=== PATIENT | female | born 1975 | race African-American/Black ===

== ENCOUNTER 2017-03-04 02:26 | Emergency (ER) | payer OTHER ==
[2017-03-04 02:43] VITALS: BMI 25.7
[2017-03-04] MEDS ORDERED: METOCLOPRAMIDE HCL INJECTION 10 MG/2 ML VIAL IVPUSH ONE (02:44)
[2017-03-04] MEDS ORDERED: SODIUM CHLORIDE 1,000 ML IV STA ×2 (02:44→04:50)
[2017-03-04] MEDS ORDERED: FAMOTIDINE 20 MG/50 ML IVPB 50 ML IVPB ONE ×2 (02:49→03:32)
[2017-03-04] MEDS ORDERED: PANTOPRAZOLE SODIUM 40 MG in SODIUM CHLORIDE 100 ML IVPB ONE (02:49)
--- NOTE | 2017-03-04 02:50 | PDOC ---
History of Present Illness - General Chief Complaint: Nausea/Vomiting Stated Complaint: FLU LIKE SYPTOMS/NAUSEA Time Seen by Provider: 03/04/17 02:30 History Source: Patient, Family (SON) Exam Limitations: No Limitations - History of Present Illness Travel History: No Initial Comments: 03/04/17 02:45 41yo Female patient presents to ED c/o subjective fever, nausea, and vomiting. Patient states she was seen at [facility], [place] March 01, 2017. She was diagnosed with Viral Gastroenteritis and prescribed Zofran, Imodium. Patient states she was unable to corn picker Zofran because it cost 68 dollars. Patient states she has tried to eat chicken broth, drank cheryl cong, water and gatorade. She denies any other complaints at this time. Timing/Duration: reports: constant Quality: reports: moderate Abdominal Pain Onset Location: denies: RUQ, LUQ, RLQ, LLQ, epigastric, periumbilical, suprapubic, generalized abdomen, flank, unknown, other Pain Radiation: denies: no radiation, RUQ, LUQ, RLQ, LLQ, epigastric, periumbilical, flank, groin, scapula, shoulder, chest, back, other Activities at Onset: denies: none, exertion, emotional upset, rest, sleep, no specific activity, eating, working, sexual intercourse, other Treatment Prior to Arrive: worse with: analgesics, antacids, cold pack, heat, laxative, enema, other Alleviating Factors: worse with: None, Belching, Shallow Breathing, Defecation, Eating, Holding Breath, Passing Gas, Change in Position, Rest, Voiding, Vomiting Past History - Travel Traveled outside of the country in the last 30 days: No Close contact w/someone who was outside of country & ill: No - Past Medical History Allergies/Adverse Reactions: Allergies Allergy/AdvReac Type Severity Reaction Status Date / Time aspirin Allergy Verified 03/04/17 03:18 Home Medications: Ambulatory Orders NK [No Known Home Medication] 11/26/15 Diabetes: Yes - Psycho/Social/Smoking Cessation Hx Suicidal Ideation: No Smoking History: Never smoked Have you smoked in the past 12 months: No Number of Cigarettes Smoked Daily: 1 Information on smoking cessation initiated: No Hx Alcohol Use: No Drug/Substance Use Hx: No Abd/GI Specific PMHX - Complaint Specific PMHX Colitis: No Diverticulitis: No Gall Bladder Disease: No GERD: No Hepatitis: No Irritable Bowel Synd (IBS): No Pancreatitis: No GI Ulcer Disease: No Review of Systems - Review of Systems Able to Perform ROS?: Yes Is the patient limited Ivorian proficient: No Constitutional: Yes: Fever (subjective). No: Chills Respiratory: Yes: Cough. No: Shortness of Breath, Stridor, Wheezing, Productive cough Cardiac (ROS): No: Chest Pain, Edema, Lightheadedness, Palpitations, Syncope, Chest Tightness ABD/GI: Yes: Diarrhea, Nausea, Poor Appetite, Vomiting. No: Constipated, Difficulty Swallowing, Poor Fluid Intake, Rectal Bleeding : No: Burning, Dysuria, Discharge, Flank Pain, Hematuria, Incontinence, Pain, Urgency Musculoskeletal: No: Back Pain Integumentary: No: Bruising, Erythema, Rash Neurological: No: Headache, Numbness, Paresthesia, Seizure, Tremors, Weakness All Other Systems: Reviewed and Negative *Physical Exam - Vital Signs Last Vital Signs Temp Pulse Resp BP Pulse Ox 97.5 F L 75 20 118/65 3 L 03/04/17 02:42 03/04/17 02:42 03/04/17 02:42 03/04/17 02:42 03/04/17 02:42 - Physical Exam General Appearance: Yes: Nourished, Appropriately Dressed, Mild Distress. No: Apparent Distress, Moderate Distress, Severe Distress HEENT: positive: EOMI, ASHOK, Normal ENT Inspection, Normal Voice, Symmetrical, TMs Normal, Pharynx Normal. negative: Nasal Congestion, Rhinorrhea, TM Bulging , TM Dull, TM Erythema Neck: positive: Trachea midline, Normal Thyroid, Supple. negative: Lymphadenopathy (R), Lymphadenopathy (L), Tender lateral, Tender midline Respiratory/Chest: positive: Lungs Clear, Normal Breath Sounds. negative: Chest Tender, Respiratory Distress, Accessory Muscle Use, Labored Respiration, Rapid RR, Stridor, Wheezing Cardiovascular: positive: Regular Rhythm, Regular Rate. negative: Edema, JVD, Murmur Gastrointestinal/Abdominal: positive: Flat, Soft, Increased Bowel Sounds. negative: Distended, Guarding, Rebound, Tenderness Musculoskeletal: positive: Normal Inspection. negative: CVA Tenderness Extremity: positive: Normal Capillary Refill, Normal Inspection, Normal Range of Motion Integumentary: positive: Normal Color, Dry, Warm Neurologic: positive: hammer driver II-XII NML intact, Fully Oriented, Alert, Normal Mood/ Affect, Normal Response, Motor Strength 04/02 ED Treatment Course - LABORATORY CBC & Chemistry Diagram: 03/04/17 03:08 03/04/17 03:08 *DC/Admit/Observation/Transfer Diagnosis at time of Disposition: Dehydration Nausea and vomiting Qualifiers: Vomiting type: cyclical vomiting Vomiting Intractability: non-intractable Qualified Code(s): G43.A0 - Cyclical vomiting, not intractable - Discharge Dispostion Disposition: HOME Condition at time of disposition: Improved Admit: No - Patient Instructions Printed Discharge Instructions: DI for Vomiting -- Adult Additional Instructions: FOLLOW UP WITH YOUR PRIMARY CARE PROVIDER. TAKE YOUR MEDICATIONS PRESCRIBED. DRINK PLENTY WATER, GATORADE. ALSO, EAT BANANA, RICE, APPLESAUCE AND TOAST. THEN ADVANCE DIET TOLERATED. Print Language: ESTONIAN
[2017-03-04] MEDS ORDERED: PANTOPRAZOLE SODIUM 100 ML IVPB ONE (03:11)
[2017-03-04 03:25] LABS: MCH 26.8 pg (25.7-33.7); MCHC 34.7 g/dl (32.0-36.0); MEAN CELL VOLUME 77.2 fl (80-96); MEAN PLT VOLUME 8.4 fl (7.5-11.1); PLATELET COUNT 266 K/MM3 (134-434); RDW 12.8 % (11.6-15.6); WHITE BLOOD COUNT 13.3 K/mm3 (4.0-10.0)
[2017-03-04 03:30] LABS: URINE APPEARANCE CLEAR; URINE BILIRUBIN NEGATIVE (NEGATIVE); URINE COLOR DKYELLOW; URINE GLUCOSE (UA) NEGATIVE (NEGATIVE); URINE KETONE 2+ (NEGATIVE); URINE NITRITE NEGATIVE (NEGATIVE); URINE UROBILINOGEN 4.0 E.U/dl E.U./dl (0.2-1.0)
[2017-03-04] MEDS ORDERED: PANTOPRAZOLE SODIUM 40 MG/100 ML PRE-DOCKED IVPB ONE (03:30)
[2017-03-04 03:47] LABS: ALBUMIN 2.9 g/dl (3.4-5.0); ALK PHOS 77 U/L (45-117); ANION GAP 17 (8-16); BILIRUBIN,TOTAL 1.4 mg/dL (0.2-1.0); CALCIUM 8.1 mg/dL (8.5-10.1); CO2 21 mmol/L (21-32); CREATININE 0.7 mg/dL (0.55-1.02); GLUCOSE,RANDOM 86 mg/dL (74-106); SGPT/ALT 19 U/L (12-78); TOT PROT 7.7 g/dl (6.4-8.2)
[2017-03-04 03:51] LABS: URINE BLOOD 1+ (NEGATIVE); URINE LEUK ESTERASE 2+ (NEGATIVE); URINE PROTEIN 2+ (NEGATIVE)
[2017-03-04 03:52] LABS: SGOT/AST 23 U/L (15-37)
[2017-03-04 03:59] LABS: URINE MUCUS RARE; URINE RBC 14 /hpf (0-3); URINE WBC 35 /hpf (3-5)
[2017-03-04 04:38] LABS: PLATELET ESTIMATE ADEQUATE (NORMAL)
[2017-03-04] MEDS ORDERED: POTASSIUM CHLORIDE TABS 20 MEQ TABLET.ER (FP) PO ONE ×2 (04:42→04:46)
[2017-03-04] MEDS ORDERED: PROMETHAZINE HCL 25 MG/1 ML VIAL IVPUSH ONE (04:50)
--- NOTE | 2017-03-04 04:56 | PDOC ---
[id number] 3 L 03/04/17 02:42 03/04/17 02:42 03/04/17 02:42 03/04/17 02:42 03/04/17 02:42 ED Treatment Course - LABORATORY CBC & Chemistry Diagram: 03/04/17 03:08 03/04/17 03:08 - ADDITIONAL ORDERS Additional order review: Laboratory Results 03/04/17 03/04/17 03:08 03:08 Sodium 136 Potassium 3.3 L Chloride 98 Carbon Dioxide 21 Anion Gap 17 H BUN 11 Creatinine 0.7 Creat Clearance w eGFR > 60 Random Glucose 86 Calcium 8.1 L Total Bilirubin 1.4 H AST 23 ALT 19 Alkaline Phosphatase 77 Total Protein 7.7 Albumin 2.9 L Urine Color Dkyellow Urine Appearance Clear Urine pH 6.0 Ur Specific Rochelle 1.025 Urine Protein 2+ H Urine Glucose (UA) Negative Urine Ketones 2+ H Urine Blood 1+ H Urine Nitrite Negative Urine Bilirubin Negative Urine Urobilinogen 4.0 e.u/dl H Ur Leukocyte Esterase 2+ H Urine RBC 14 Urine WBC 35 Ur Epithelial Cells Rare Urine Mucus Rare 03/04/17 03:08 RBC 5.31 H MCV 77.2 L MCHC 34.7 RDW 12.8 MPV 8.4 Neutrophils % 77.0 Lymphocytes % 12.0 Monocytes % 9.0 - Medications Given in the ED: ED Medications Discontinued Medications Generic Name Dose Route Start Last Admin Trade Name Freq PRN Reason Stop Dose Admin Sodium Chloride 1,000 mls @ 1,000 mls/hr 03/04/17 02:44 03/04/17 03:09 Normal Saline - IV 03/04/17 03:43 1,000 mls/hr ASDIR STA Administration Pantoprazole Sodium 40 mg/ 100 mls @ 200 mls/hr 03/04/17 02:49 03/04/17 03:14 Sodium Chloride IVPB 03/04/17 03:18 200 mls/hr ONCE ONE Administration Famotidine/Sodium Chloride 50 mls @ 100 mls/hr 03/04/17 02:49 03/04/17 03:37 Pepcid 20 Mg Premixed Ivpb - IVPB 03/04/17 03:18 100 mls/hr ONCE ONE Administration Metoclopramide HCl 10 mg 03/04/17 02:44 03/04/17 03:09 Reglan Injection - IVPUSH 03/04/17 02:45 10 mg ONCE ONE Administration Potassium Chloride 40 meq 03/04/17 04:42 03/04/17 04:54 K-Dur - PO 03/04/17 04:43 40 meq ONCE ONE Administration Medical Decision Making - Medical Decision Making 03/04/17 04:56 agree with care from TUBE MAKER Gareth *DC/Admit/Observation/Transfer Diagnosis at time of Disposition: Dehydration, Nausea & vomiting - Discharge Dispostion Disposition: HOME Condition at time of disposition: Improved - Referrals Referrals: Mike Davison MD [Primary Care Provider] - - Patient Instructions Printed Discharge Instructions: DI for Vomiting -- Adult Additional Instructions: FOLLOW UP WITH YOUR PRIMARY CARE PROVIDER. TAKE YOUR MEDICATIONS PRESCRIBED. DRINK PLENTY WATER, GATORADE. ALSO, EAT BANANA, RICE, APPLESAUCE AND TOAST. THEN ADVANCE DIET TOLERATED. Print Language: SIERRA LEONEAN
[2017-03-04] MEDS ORDERED: PROMETHAZINE HCL 25 MG/1 ML VIAL ONE (05:01)
[2017-03-04 06:40] VITALS: BP 105/61; PULSE 85; TEMP 98.2
== END 2017-03-04 06:42 | disposition home or self-care (01) ==
LOC: JER 02:26
PROC: 3E0337Z Introduction of Electrolytic and Water Balance Substance into Peripheral Vein, Percutaneous Approach (ICD-10-PCS; principal; 2017-03-04)
PROC: 3E033GC Introduction of Other Therapeutic Substance into Peripheral Vein, Percutaneous Approach (ICD-10-PCS; 2017-03-04)
PROC: 3E033GC Introduction of Other Therapeutic Substance into Peripheral Vein, Percutaneous Approach (ICD-10-PCS; 2017-03-04)
DX: E86.0 Dehydration (principal); G43.A0 Cyclical vomiting, in migraine, not intractable
CPT/HCPCS: 36415; 80053; 81003; 81015; 85025; 99283-25

== ENCOUNTER 2017-03-07 17:26 | Inpatient (IN) | payer OTHER ==
[2017-03-07] MEDS ORDERED: SODIUM CHLORIDE 1,000 ML IV STA ×2 (19:38→23:01)
[2017-03-07] MEDS ORDERED: PROMETHAZINE HCL 25 MG/1 ML VIAL IVPUSH ONE (19:38)
[2017-03-07] MEDS ORDERED: PANTOPRAZOLE SODIUM 40 MG in SODIUM CHLORIDE 100 ML IVPB ONE (19:38)
[2017-03-07] MEDS ORDERED: PROMETHAZINE HCL 25 MG/1 ML VIAL ONE (19:53)
[2017-03-07] MEDS ORDERED: PANTOPRAZOLE SODIUM 100 ML IVPB ONE (19:53)
[2017-03-07 19:57] LABS: MCH 26.5 pg (25.7-33.7); MCHC 34.3 g/dl (32.0-36.0); MEAN CELL VOLUME 77.3 fl (80-96); MEAN PLT VOLUME 7.5 fl (7.5-11.1); PLATELET COUNT 569 K/MM3 (134-434); WHITE BLOOD COUNT 24.4 K/mm3 (4.0-10.0)
[2017-03-07 20:19] LABS: ALBUMIN 2.7 g/dl (3.4-5.0); CALCIUM 8.4 mg/dL (8.5-10.1); COCKROFT - GAULT 105.315; CREATININE 0.7 mg/dL (0.55-1.02)
[2017-03-07 20:21] LABS: BILIRUBIN,TOTAL 1.1 mg/dL (0.2-1.0); TOT PROT 8.7 g/dl (6.4-8.2)
[2017-03-07 20:23] LABS: BILIRUBIN,DIRECT 0.2 mg/dL (0.0-0.2)
[2017-03-07 20:35] LABS: PLATELET ESTIMATE INCREASED (NORMAL)
[2017-03-07 20:36] LABS: DOHLE BODIES 1+; TARGET CELLS 1+; TOXIC GRANULATION 1+
--- NOTE | 2017-03-07 21:39 | PDOC ---
History of Present Illness - General Chief Complaint: Vomiting/Diarrhea Stated Complaint: VOMITING/DIARRHEA/COUGH Time Seen by Provider: 03/07/17 19:19 History Source: Patient Exam Limitations: No Limitations - History of Present Illness Travel History: No Initial Comments: 03/07/17 21:30 41yo Female patient presents to ED c/o abd pain, n/v/d. Patient was seen and evaluated 03-04-2017 for same symptoms, and discharged home. Patient was initially seen at [facility] 03-01-2017 and diagnosed with viral Gastroenteritis and d/c home with zofran and immodium. Patient reports she has not been able to eating or drinking since she was discharged on the . Patient denies fever, back pain, diff breathing, dysuria, hematuria, or any other complaints at this time. Timing/Duration: reports: constant, getting worse Quality: reports: severe, stabbing Abdominal Pain Onset Location: reports: epigastric Pain Radiation: reports: no radiation Activities at Onset: reports: no specific activity Treatment Prior to Arrive: improves with: antacids. worse with: analgesics, cold pack, heat, laxative, enema, other Aggravating Factors: worse with: None, Defecation, Eating, Emotional upset, Exertion, Learned, Movement, Voiding, Change in position Alleviating Factors: worse with: None, Belching, Shallow Breathing, Defecation, Eating, Holding Breath, Passing Gas, Change in Position, Rest, Voiding, Vomiting Past History - Travel Traveled outside of the country in the last 30 days: No Close contact w/someone who was outside of country & ill: No - Past Medical History Allergies/Adverse Reactions: Allergies Allergy/AdvReac Type Severity Reaction Status Date / Time aspirin Allergy Verified 03/07/17 17:34 Home Medications: Ambulatory Orders NK [No Known Home Medication] 11/26/15 Diabetes: Yes (HYPOGLYCEMIA) - Surgical History Cholecystectomy: Yes - Psycho/Social/Smoking Cessation Hx Suicidal Ideation: No Smoking History: Never smoked Have you smoked in the past 12 months: No Number of Cigarettes Smoked Daily: 1 Hx Alcohol Use: No Drug/Substance Use Hx: No Substance Use Type: None Abd/GI Specific PMHX - Complaint Specific PMHX Colitis: No Diverticulitis: No Gall Bladder Disease: No GERD: No Hepatitis: No Irritable Bowel Synd (IBS): No Pancreatitis: No GI Ulcer Disease: No Review of Systems - Review of Systems Able to Perform ROS?: Yes Is the patient limited Sierra Leonean proficient: No Constitutional: No: Chills, Fever Respiratory: No: Cough, Shortness of Breath, Stridor, Wheezing, Hemoptysis Cardiac (ROS): No: Chest Pain, Edema, Palpitations, Syncope, Chest Tightness ABD/GI: Yes: Diarrhea, Nausea, Poor Fluid Intake, Vomiting. No: Constipated, Poor Appetite, Rectal Bleeding, Indigestion, Abdominal cramping : No: Burning, Dysuria, Discharge, Flank Pain, Hematuria Musculoskeletal: No: Back Pain, Muscle Pain, Muscle Weakness Integumentary: No: Bruising, Erythema, Sweating Neurological: No: Headache, Numbness, Seizure, Tingling, Tremors, Weakness, Dizziness All Other Systems: Reviewed and Negative *Physical Exam - Vital Signs Last Vital Signs Temp Pulse Resp BP Pulse Ox 98.1 F 95 H 20 107/66 96 03/07/17 17:31 03/07/17 17:31 03/07/17 17:31 03/07/17 17:31 03/07/17 20:09 - Physical Exam General Appearance: Yes: Apparent Distress, Moderate Distress, Thin. No: Mild Distress, Severe Distress HEENT: positive: EOMI, ASHOK, Normal ENT Inspection, Normal Voice, Symmetrical, TMs Normal, Pharynx Normal. negative: Pharyngeal Erythema, Tonsillar Exudate, Tonsillar Erythema, Nasal Congestion, Rhinorrhea, TM Bulging, TM Dull, TM Erythema Neck: positive: Trachea midline, Supple. negative: Stridor, Lymphadenopathy (R) , Lymphadenopathy (L) Respiratory/Chest: positive: Lungs Clear, Normal Breath Sounds. negative: Respiratory Distress, Accessory Muscle Use, Labored Respiration, Rapid RR Cardiovascular: positive: Regular Rhythm, Regular Rate. negative: Edema, JVD, Murmur Gastrointestinal/Abdominal: positive: Tender, Flat, Soft, Increased Bowel Sounds , Guarding, Rebound, Tenderness (Epigastric abdominal pain). negative: Distended Musculoskeletal: positive: Normal Inspection. negative: CVA Tenderness Extremity: positive: Normal Capillary Refill, Normal Inspection, Normal Range of Motion. negative: Swelling, Calf Tenderness, Erythema, Inflammation Integumentary: positive: Normal Color, Dry, Warm Neurologic: positive: snowboarder II-XII NML intact, Fully Oriented, Alert, Normal Mood/ Affect, Normal Response, Motor Strength 04/02 ED Treatment Course - LABORATORY CBC & Chemistry Diagram: 03/07/17 19:45 03/07/17 19:45 - ADDITIONAL ORDERS Additional order review: Laboratory Results 03/07/17 19:45 Sodium 137 Potassium 3.6 Chloride 98 Carbon Dioxide 21 Anion Gap 18 H BUN 9 Creatinine 0.7 Random Glucose 103 Calcium 8.4 L Total Bilirubin 1.1 H D Direct Bilirubin 0.2 AST 50 H D ALT 54 D Alkaline Phosphatase 89 Total Protein 8.7 H Albumin 2.7 L Total Amylase 82 Lipase 245 03/07/17 19:45 RBC 5.30 H MCV 77.3 L MCHC 34.3 RDW 13.0 MPV 7.5 D Neutrophils % 78.0 Lymphocytes % 6.0 L D Monocytes % 8.0 - RADIOLOGY Radiology Studies Ordered: Category Date Time Status GALLBLADDER US [US] Stat Ultrasound 03/07/17 19:41 Ordered - Medications Given in the ED: ED Medications Discontinued Medications Generic Name Dose Route Start Last Admin Trade Name Kalebq PRN Reason Stop Dose Admin Pantoprazole Sodium 40 mg/ 100 mls @ 200 mls/hr 03/07/17 19:38 03/07/17 19:42 Sodium Chloride IVPB 03/07/17 20:07 200 mls/hr ONCE ONE Administration Sodium Chloride 1,000 mls @ 1,000 mls/hr 03/07/17 19:38 03/07/17 19:42 Normal Saline - IV 03/07/17 20:37 1,000 mls/hr ASDIR STA Administration Promethazine HCl 12.5 mg 03/07/17 19:38 03/07/17 19:42 Phenergan Injection - IVPUSH 03/07/17 19:39 12.5 mg ONCE ONE Administration *DC/Admit/Observation/Transfer Diagnosis at time of Disposition: Pneumonia Qualifiers: Pneumonia type: due to unspecified organism Laterality: right Lung location: lower lobe of lung Qualified Code(s): J18.1 - Lobar pneumonia, unspecified organism - Discharge Dispostion Condition at time of disposition: Fair Admit: Yes
[2017-03-07 22:22] LABS: URINE APPEARANCE CLEAR; URINE BILIRUBIN NEGATIVE (NEGATIVE); URINE COLOR YELLOW; URINE GLUCOSE (UA) NEGATIVE (NEGATIVE); URINE KETONE 2+ (NEGATIVE); URINE NITRITE NEGATIVE (NEGATIVE); URINE UROBILINOGEN 2.0 E.U/dl E.U./dl (0.2-1.0)
[2017-03-07 22:23] LABS: URINE BLOOD 2+ (NEGATIVE); URINE LEUK ESTERASE TRACE (NEGATIVE); URINE PROTEIN 2+ (NEGATIVE)
[2017-03-07 22:24] LABS: URINE MUCUS RARE; URINE RBC 12 /hpf (0-3); URINE WBC 11 /hpf (3-5)
[2017-03-07] MEDS ORDERED: METOCLOPRAMIDE HCL INJECTION 10 MG/2 ML VIAL IVPB ONE (23:01)
[2017-03-07] MEDS ORDERED: METOCLOPRAMIDE HCL INJECTION 10 MG/2 ML VIAL ONE (23:04)
[2017-03-08] MEDS ORDERED: SODIUM CHLORIDE 1,000 ML IV STA (03:55)
[2017-03-08] MEDS ORDERED: methylPREDNISolone NA SUCC 125 MG/2 ML VIAL IVPB ONE (03:55)
[2017-03-08] MEDS ORDERED: LEVOFLOXACIN 750 MG IVPB 150 ML IVPB ONE (03:55)
[2017-03-08] MEDS ORDERED: AZITHROMYCIN IVPB 500 MG in DEXTROSE 5%-WATER - 250 ML IVPB ONE (03:56)
[2017-03-08] MEDS ORDERED: CEFTRIAXONE 1 GM in DEXTROSE 5%-WATER - 50 ML IVPB ONE (03:56)
[2017-03-08] MEDS ORDERED: methylPREDNISolone NA SUCC 125 MG/2 ML VIAL ONE (04:20)
[2017-03-08] MEDS ORDERED: CEFTRIAXONE 50 ML ONE (04:21)
[2017-03-08] MEDS ORDERED: AZITHROMYCIN IVPB 250 ML IVPB ONE (05:07)
--- NOTE | 2017-03-08 05:21 | HP ---
Admitting History and Physical - Admission Chief Complaint: cough, malaise, vomiting History of Present Illness: 41 yo f w hx of hysterectomy, asthma, cholecystectomy thyroid nodules s/p biopsy , ovarian cysts, cystic breast disease presents to the er for persistent n/v/d, malaise, cough symptoms for 2 weeks. She was seen here on 03/04 for same and discharged home. She reports prod cough w yellowish sputum, poor appetite, chills, inability to keep food down, subj fever. She reports cough associated chest pain, and pleurisy. She reports body aches, and mild headache. She states her stools have been greenish and loose. she reports her son had cold symptoms before she got sick. She denies recent travel. She denies sob, sore throat, runny nose, nasal congestion, syncope, numbness, dysuria, hematemesis. pmh/psh- hysterectomy, asthma, thyroid nodules s/p biopsy, ovarian cysts, cystic breast disease, cholecystectomy social- denies tobacco, alcohol, rec drugs. medical supervisor [id number] natural pcp- dr alvarez Ros neg except for hpi physical general- ill appearing, in nad hent- at/nc, thang, neck supple, trachea mid-line, no pharyngeal erythema resp- +cough, no cyanosis, no accessory muscle use, lungs ctab, no rales, no wheeze cards- s1s2 heard, no jvd, no leg edema, rrr, no murmurs skin- warm to touch, no erythema, no lesions psych- cooperative, no agitation, calm neuro- cn2-12 grossly intact, speech clear no seizures gi- diffuse ttp, no rebound, no guarding, no rigidity, no distention, bs normoactive musk- normal arom, no back pain prob list pna leukocytosis tachycardia hyperbilirubemia thrombocytosis asthma imaging ctap reviewed us reviewed cxr reviewed a/p-41 yo f w hx of hysterectomy, asthma, thyroid nodules s/p biopsy, ovarian cysts, cystic breast disease presents to the er for persistent n/v/d, malaise, cough symptoms for 2 weeks admitted for eval of their emergent condition 1. PNA, CAP CXR shows R lobe infiltrate on my view Given Lvq, azithromycin, and CTX in ER FU cultures; blood, sputum, urine Cont ABX; azithromycin, ctx 2. Meets SIRS 2/2 to #1 3. thrombocytosis likely 2/2 #1 4. asthma aman nebs 5. hyperbilirubemia abdomen us neg for acute pathology trend labs 6. N/V/D CTAP neg for obstruction, colitis, diverticulitis Supportive care dispo- requires >2mn stay for acute pna fen ivf dvt prophy scd, oob, sq hep abdomen us Referring Physician: Emmy Servin Patient Name: Fauzia Tate THIS IS A PRELIMINARY REPORT FROM [employer] IMAGES: [id number] EXAM DATE AND TIME: 2017-02 21:06:12.0 EXAM: ULTRASOUND ABDOMEN INCOMPLETE Cholecystectomy. Unremarkable liver, right kidney and visualized aorta and pancreas. CTAP-Referring Physician: Emmy Servin Patient Name: Fauzia Tate THIS IS A PRELIMINARY REPORT FROM [employer] IMAGES: [id number] EXAM DATE AND TIME: 2016 00:07:04.0 EXAM: CT ABDOMEN AND PELVIS WITH CONTRAST Patchy densities lung bases, consistent with pneumonia. Advise follow-up after treatment. No bowel obstruction, colitis, diverticulitis, free fluid or free air. Normal appendix. Unremarkable pancreas and kidneys. Cholecystectomy. Borderline hepatomegaly. Avidly enhancing vaginal mucosa, correlate clinically for vaginitis. Hysterectomy. History Source: Patient Limitations to Obtaining History: No Limitations - Smoking History Smoking history: Never smoked Have you smoked in the past 12 months: No Aproximately how many cigarettes per day: 1 - Alcohol/Substance Use Hx Alcohol Use: No Home Medications - Allergies Allergies/Adverse Reactions: Allergies Allergy/AdvReac Type Severity Reaction Status Date / Time aspirin Allergy Verified 03/07/17 17:34 - Home Medications Home Medications: Ambulatory Orders NK [No Known Home Medication] 11/26/15 Physical Examination Vital Signs: Vital Signs Temperature 98.8 F 03/08/17 01:41 Pulse Rate 80 03/08/17 01:41 Respiratory Rate 16 03/08/17 01:41 Blood Pressure 108/60 03/08/17 01:41 O2 Sat by Pulse Oximetry (%) 99 03/08/17 01:41 Labs: CBC, BMP 03/07/17 19:45 03/07/17 19:45 Visit type - Emergency Visit Emergency Visit: Yes ED Registration Date: 03/08/17 Care time: The patient presented to the Emergency Department on the above date and was hospitalized for further evaluation of their emergent condition. - New Patient This patient is new to me today: Yes Date on this admission: 03/09/17 - Critical Care Critical Care patient: No
[2017-03-08] MEDS ORDERED: ACETAMINOPHEN 325 MG TABLET (FP) PO PRN (05:22)
[2017-03-08] MEDS ORDERED: METOCLOPRAMIDE HCL INJECTION 10 MG/2 ML VIAL IVPB PRN (05:22)
[2017-03-08] MEDS: SODIUM CHLORIDE 1,000 ML IV SCH (05:47)
[2017-03-08] MEDS ORDERED: HEPARIN NA (PORCINE) 5,000 UNITS/ML 1ML VIAL ONE (06:45)
[2017-03-08] MEDS: HEPARIN NA (PORCINE) 5,000 UNITS/ML 1ML VIAL SQ SCH ×4 (06:46→22:28)
[2017-03-08 07:11] LABS: BASOPHIL 0.2 % (0-2.0); EOSINOPHIL 0.1 % (0-4.5); MCHC 34.9 g/dl (32.0-36.0); MEAN CELL VOLUME 77.4 fl (80-96); MEAN PLT VOLUME 7.5 fl (7.5-11.1); NEUTROPHILS 93.3 % (42.8-82.8); PLATELET COUNT 468 K/MM3 (134-434); RDW 12.8 % (11.6-15.6); WHITE BLOOD COUNT 20.1 K/mm3 (4.0-10.0)
[2017-03-08 07:33] LABS: ALBUMIN 2.2 g/dl (3.4-5.0); ANION GAP 13 (8-16); CALCIUM 7.5 mg/dL (8.5-10.1); CO2 21 mmol/L (21-32); GLUCOSE,RANDOM 133 mg/dL (74-106)
[2017-03-08 07:37] LABS: ALK PHOS 75 U/L (45-117); BILIRUBIN,TOTAL 0.5 mg/dL (0.2-1.0); COCKROFT - GAULT 147.475; CREATININE 0.5 mg/dL (0.55-1.02); SGOT/AST 37 U/L (15-37); SGPT/ALT 48 U/L (12-78)
[2017-03-08] MEDS ORDERED: PANTOPRAZOLE SODIUM 100 ML IVPB ONE (09:36)
[2017-03-08] MEDS: PANTOPRAZOLE SODIUM 40 MG/100 ML PRE-DOCKED IVPB SCH (09:37)
[2017-03-08] MEDS: ALBUTEROL SO4 2.5/IPRATROPIUM 0.5 INH SOL 3 ML VIAL.NEB. NEB SCH ×5 (10:00→22:00)
[2017-03-08] MEDS ORDERED: PANTOPRAZOLE SODIUM 40 MG in SODIUM CHLORIDE 100 ML IVPB SCH (10:00)
[2017-03-08] MEDS ORDERED: AZITHROMYCIN IVPB 500 MG in DEXTROSE 5%-WATER - 250 ML IVPB SCH (10:00)
[2017-03-08] MEDS ORDERED: CEFTRIAXONE 2 GM in DEXTROSE 5%-WATER - 100 ML IVPB SCH (10:00)
[2017-03-08] MEDS ORDERED: POTASSIUM CHLORIDE TABS 20 MEQ TABLET.ER (FP) PO ONE ×2 (12:03→12:30)
[2017-03-08] MEDS ORDERED: ALBUTEROL SO4 2.5/IPRATROPIUM 0.5 INH SOL 3 ML VIAL.NEB. NEB ONE (16:00)
[2017-03-08 18:52] VITALS: BMI 23.6
[2017-03-08] MEDS: guaiFENesin 200 MG/10 ML 10 ML UNIT-DOSE CUPS PO PRN (22:30)
[2017-03-09] MEDS: ALBUTEROL SO4 2.5/IPRATROPIUM 0.5 INH SOL 3 ML VIAL.NEB. NEB SCH ×6 (01:44→22:40)
[2017-03-09] MEDS: SODIUM CHLORIDE 1,000 ML IV SCH ×3 (02:59→14:23)
[2017-03-09] MEDS: HEPARIN NA (PORCINE) 5,000 UNITS/ML 1ML VIAL SQ SCH ×3 (06:43→21:52)
[2017-03-09 07:43] LABS: MCH 26.6 pg (25.7-33.7); MCHC 33.9 g/dl (32.0-36.0); MEAN CELL VOLUME 78.5 fl (80-96); MEAN PLT VOLUME 7.5 fl (7.5-11.1); PLATELET COUNT 501 K/MM3 (134-434); RDW 12.9 % (11.6-15.6); WHITE BLOOD COUNT 20.7 K/mm3 (4.0-10.0)
[2017-03-09 08:36] LABS: ALBUMIN 2.2 g/dl (3.4-5.0); ANION GAP 11 (8-16); CO2 26 mmol/L (21-32); GLUCOSE,RANDOM 88 mg/dL (74-106)
[2017-03-09 08:40] LABS: ALK PHOS 70 U/L (45-117); BILIRUBIN,TOTAL 0.5 mg/dL (0.2-1.0); CREATININE 0.7 mg/dL (0.55-1.02); SGOT/AST 28 U/L (15-37); SGPT/ALT 48 U/L (12-78)
[2017-03-09] MEDS: AZITHROMYCIN IVPB 500 MG/250 ML D5W PRE-DOCKED IVPB SCH (10:04)
[2017-03-09] MEDS: guaiFENesin 200 MG/10 ML 10 ML UNIT-DOSE CUPS PO PRN (10:04)
[2017-03-09] MEDS: PANTOPRAZOLE SODIUM 40 MG/100 ML PRE-DOCKED IVPB SCH (10:04)
[2017-03-09] MEDS: cefTRIAXone 2 GM/100 ML BAG (PRE-DOCKED) IVPB SCH (10:04)
--- NOTE | 2017-03-09 13:20 | PN ---
Progress Note (short form) - Note Progress Note: Subjective: The patient was seen and examined at the bedside. She reports still with cough and greenish/yellow phlegm Current Medications Generic Name Dose Route Start Last Admin Trade Name Frekofi PRN Reason Stop Dose Admin Acetaminophen 650 mg 03/08/17 05:22 Tylenol - PO Q4H PRN FEVER OR PAIN Albuterol/Ipratropium 1 amp 03/08/17 10:00 03/09/17 05:35 Duoneb - NEB 03/09/17 23:59 Not Given Q4HPO ISAI Azithromycin 500 mg 03/09/17 10:00 03/09/17 10:04 Zithromax 500mg Ivpb (Pre-Docked) IVPB 500 mg DAILY ISAI Administration Ceftriaxone Sodium 2 gm 03/09/17 10:00 03/09/17 10:04 Rocephin 2gm Ivpb (Pre-Docked) IVPB 2 gm DAILY ISAI Administration Guaifenesin/Codeine Phosphate 10 ml 03/09/17 13:12 Robitussin Ac - PO Q6H PRN COUGH Heparin Sodium (Porcine) 5,000 unit 03/08/17 06:15 03/09/17 13:03 Heparin - SQ Not Given TID ISAI Sodium Chloride 1,000 mls @ 125 mls/hr 03/08/17 05:30 03/09/17 07:37 Normal Saline - IV Not Given ASDIR ISAI Metoclopramide HCl 10 mg 03/08/17 05:22 Reglan Injection - IVPB Q6H PRN NAUSEA AND/OR VOMITING Pantoprazole Sodium 40 mg 03/08/17 10:00 03/09/17 10:04 Protonix 40mg Ivpb (Pre-Docked) IVPB 40 mg DAILY ISAI Administration Objective: Vital Signs Period Temp Pulse Resp BP Sys/Curtis Pulse Ox Last 24 Hr 97.6 F-98.7 F 59-88 18-20 117-131/67-79 97-98 Physical Exam: General: NAD, A&Ox3 Lungs: Diminished breath sounds b/l. +cough with sputum Heart: RRR, S1S2 Abd: Soft, non-tender, non-distended. Normoactive bowel sounds Ext: Warm, well-perfused. 2+ DP/PT bilaterally Neuro: CN 2-12 intact CBCD WBC 20.7 K/mm3 (4.0-10.0) H 03/09/17 06:35 RBC 4.24 M/mm3 (3.60-5.2) 03/09/17 06:35 Hgb 11.3 GM/dL (10.7-15.3) 03/09/17 06:35 Hct 33.3 % (32.4-45.2) 03/09/17 06:35 MCV 78.5 fl (80-96) L 03/09/17 06:35 MCHC 33.9 g/dl (32.0-36.0) 03/09/17 06:35 RDW 12.9 % (11.6-15.6) 03/09/17 06:35 Plt Count 501 K/MM3 (134-434) H 03/09/17 06:35 MPV 7.5 fl (7.5-11.1) 03/09/17 06:35 CMP Sodium 140 mmol/L (136-145) 03/09/17 06:35 Potassium 3.6 mmol/L (3.5-5.1) 03/09/17 06:35 Chloride 103 mmol/L (98-107) 03/09/17 06:35 Carbon Dioxide 26 mmol/L (21-32) D 03/09/17 06:35 Anion Gap 11 (8-16) 03/09/17 06:35 BUN 6 mg/dL (7-18) L 03/09/17 06:35 Creatinine 0.7 mg/dL (0.55-1.02) D 03/09/17 06:35 Creat Clearance w eGFR > 60 (>60) 03/09/17 06:35 Random Glucose 88 mg/dL (74-106) D 03/09/17 06:35 Calcium 8.0 mg/dL (8.5-10.1) L 03/09/17 06:35 Total Bilirubin 0.5 mg/dL (0.2-1.0) 03/09/17 06:35 AST 28 U/L (15-37) D 03/09/17 06:35 ALT 48 U/L (12-78) 03/09/17 06:35 Alkaline Phosphatase 70 U/L (45-117) 03/09/17 06:35 Total Protein 7.0 g/dl (6.4-8.2) 03/09/17 06:35 Albumin 2.2 g/dl (3.4-5.0) L 03/09/17 06:35 Microbiology 03/08/17 04:06 Blood - Peripheral Venous Blood Culture - Preliminary NO GROWTH OBTAINED AFTER 24 HOURS, INCUBATION TO CONTINUE FOR 4 DAYS. 03/08/17 04:06 Blood - Peripheral Venous Blood Culture - Preliminary NO GROWTH OBTAINED AFTER 24 HOURS, INCUBATION TO CONTINUE FOR 4 DAYS. Assessment: This is a 41 year old female with PMHx of hysterectomy, asthma, cholecystectomy, thyroid nodules s/p biopsy, ovarian cysts, cystic breast disease who presented to the ED with malaise, cough with sputum production, nausea/vomiting/diarrhea x2 weeks. Plan: 1) ID: Community acquired pneumonia - Chest x-ray with airspace opacities noted within the lower lobes - CTAP: densities/consolidations in the lower lobes and right middle lobe consistent with pneumonia. Recommend follow-up post treatment to exclude possibility of underlying mass - Blood cultures with NGTD - F/u sputum culture - F/u urine legionella ag - WBC remain elevated - Afebrile - Continue Azithromycin - Continue Ceftriaxone - Guaifenesin prn cough - Nebs prn - Will need outpatient pulmonary follow-up in 4 weeks for repeat chest CT 2) GI: Nausea/vomiting/diarrhea - Resolved 3) Hematology: New onset thrombocytosis - Continue to monitor, likely 2/2 acute lung process 4) F/E/N: - Regular diet - Monitor electrolytes 5) Prophylaxis: - OOB ambulating - Heparin 5,000u sq tid 6) Dispo: - Requires continued inpatient care CODE STATUS: FULL CODE Visit type - Emergency Visit Emergency Visit: Yes ED Registration Date: 03/08/17 Care time: The patient presented to the Emergency Department on the above date and was hospitalized for further evaluation of their emergent condition. - New Patient This patient is new to me today: Yes Date on this admission: 03/09/17 - Critical Care Critical Care patient: No
[2017-03-09] MEDS: guaiFENesin/CODEINE 10 ML UNIT-DOSE CUPS PO PRN ×2 (14:23→22:16)
[2017-03-10] MEDS: SODIUM CHLORIDE 1,000 ML IV SCH ×3 (00:36→09:31)
[2017-03-10] MEDS: guaiFENesin/CODEINE 10 ML UNIT-DOSE CUPS PO PRN (05:08)
[2017-03-10] MEDS: HEPARIN NA (PORCINE) 5,000 UNITS/ML 1ML VIAL SQ SCH (05:52)
[2017-03-10 07:57] LABS: MCH 27.3 pg (25.7-33.7); MCHC 35.2 g/dl (32.0-36.0); MEAN CELL VOLUME 77.5 fl (80-96); MEAN PLT VOLUME 7.6 fl (7.5-11.1); PLATELET COUNT 537 K/MM3 (134-434); RDW 13.2 % (11.6-15.6); WHITE BLOOD COUNT 9.4 K/mm3 (4.0-10.0)
[2017-03-10] MEDS: cefTRIAXone 2 GM/100 ML BAG (PRE-DOCKED) IVPB SCH (09:26)
[2017-03-10 09:34] VITALS: BP 133/71; PULSE 69; TEMP 97.8
[2017-03-10] MEDS: AZITHROMYCIN IVPB 500 MG/250 ML D5W PRE-DOCKED IVPB SCH (10:35)
[2017-03-10] MEDS ORDERED: ALBUTEROL SO4 2.5/IPRATROPIUM 0.5 INH SOL 3 ML VIAL.NEB. NEB ONE (10:43)
--- NOTE | 2017-03-10 11:50 | DS ---
[id number] Rate 20 03/10/17 09:33 Blood Pressure 133/71 03/10/17 09:33 O2 Sat by Pulse Oximetry (%) 98 03/09/17 21:00 Findings/Remarks: Physical Exam: General: NAD, A&Ox3 Lungs: Lungs CTA bilaterally Heart: RRR, S1S2 Abd: Soft, non-tender, non-distended. Normoactive bowel sounds Ext: Warm, well-perfused. 2+ DP/PT bilaterally Neuro: CN 2-12 intact Labs: CBC, BMP 03/10/17 07:21 03/09/17 06:35 Discharge Summary Reason For Visit: PNEUMONIA Current Active Problems Pneumonia (Acute) Hospital Course: This is a 41 year old female with PMHx of hysterectomy, asthma, cholecystectomy , thyroid nodules s/p biopsy, ovarian cysts, cystic breast disease who presented to the ED with malaise, cough with sputum production, nausea/vomiting/ diarrhea x2 weeks. Plan: 1) ID: Community acquired pneumonia - Chest x-ray with airspace opacities noted within the lower lobes - CTAP: densities/consolidations in the lower lobes and right middle lobe consistent with pneumonia. Recommend follow-up post treatment to exclude possibility of underlying mass - Blood cultures with NGTD - Sputum culture with normal respiratory paulette - WBC wnl - Afebrile - On azithromycin and ceftriaxone in the hospital - Guaifenesin prn cough - Nebs prn - Will need outpatient pulmonary follow-up in 4 weeks for repeat chest CT 2) GI: Nausea/vomiting/diarrhea - Resolved 3) Hematology: New onset thrombocytosis - Continue to monitor, likely 2/2 acute lung process Discharged the patient with Ceftin and instructed her to follow-up with pcp and pulmonary within 1 week. Please return to the ED with new, persistent, or worsening symptoms. This discharge took 45 minutes to complete. Condition: Improved - Instructions Diet, Activity, Other Instructions: Please return to the ED with new, persistent, or worsening symptoms. Please follow-up with your providers as indicated. Please continue to complete course of antibiotics. Use your nebulizer and albuterol rescue inhaler as needed. Referrals: Mike Davison MD [Primary Care Provider] - (Please follow-up with your pcp within 3-5 days to have your platelet count rechecked) Melvin cMgarry MD [Staff Physician] - (Please follow-up with Dr. Mcgarry within 1- 2 weeks for outpatient pulmonary function testing and to have a repeat chest CT to evaluate your lower lung lobes for resolution of the pneumonia and to exclude an possibility of an underlying mass. ) Disposition: HOME - Home Medications Comprehensive Discharge Medication List: Ambulatory Orders Albuterol 2.5/Ipratropium 0.5 [Duoneb -] 1 amp NEB Q4HPO #120 amp 03/10/17 Albuterol Sulfate Inhaler - [Ventolin HFA Inhaler -] 1 - 2 inh PO Q4H PRN #1 inhaler 03/10/17 Budesonide/Formeterol Fumarate [SYMBICORT 80/4.5mcg -] 1 inh PO BID #1 cannister 03/10/17 Cefuroxime Axetil [Ceftin -] 500 mg PO Q12H #20 tablet 03/10/17 Guaifenesin AC [Robitussin AC -] 10 ml PO Q6H PRN #250 ml MDD 40ml 03/10/17 Montelukast Na [Singulair -] 10 mg PO HS #30 tablet 03/10/17 Nebulizer [Aeroeclipse II] 1 each MC PRN PRN #1 each 03/10/17 This patient is new to me today: No Emergency Visit: Yes ED Registration Date: 03/08/17 Care time: The patient presented to the Emergency Department on the above date and was hospitalized for further evaluation of their emergent condition. Critical Care patient: No - Discharge Referral Referred to [facility] No
== END 2017-03-10 15:17 | disposition home or self-care (01) | DRG 195 ==
LOC: JER 17:26 → JERBED 03-08 06:07 → J5S 03-08 18:14
PROVIDERS: ADMIT Internal Medicine; ATTEND Registered Nurse
DX: J18.9 Pneumonia, unspecified organism (principal); J45.909 Unspecified asthma, uncomplicated; D47.3 Essential (hemorrhagic) thrombocythemia; E80.6 Other disorders of bilirubin metabolism; R11.2 Nausea with vomiting, unspecified; R19.7 Diarrhea, unspecified; N83.209 Unspecified ovarian cyst, unspecified side; R00.0 Tachycardia, unspecified
CPT/HCPCS: 36415; 71020-TC; 74177-TC; 76705-TC; 80048; 80053; 80076; 81003; 81015; 82150; 83605; 83690; 85025; 85027; 87040; 87070; 87205; 94640; 99284-25; J1644

== ENCOUNTER 2022-02-16 11:15 | Emergency (ER) | payer OTHER ==
[2022-02-16 11:44] VITALS: BP 107/70; PULSE 76; TEMP 98.1; BMI 21.1
== END 2022-02-16 13:29 | disposition home or self-care (01) ==
LOC: JERFT 11:15
DX: L30.9 Dermatitis, unspecified (principal)
CPT/HCPCS: 99283-25

== ENCOUNTER 2022-02-23 16:23 | Emergency (ER) | payer OTHER ==
[2022-02-23 17:00] VITALS: BP 147/82; PULSE 87; TEMP 98.7; BMI 24.2
[2022-02-23 20:09] LABS: METHADONE, UR NEGATIVE (NEGATIVE); URINE BENZODIAZEPINES NEGATIVE (NEGATIVE)
[2022-02-23 20:10] LABS: COCAINE, UR NEGATIVE (NEGATIVE); OPIATES, URI NEGATIVE (NEGATIVE); PHENCYCLIDINE,URINE NEGATIVE (NEGATIVE); URINE BARBITURATES NEGATIVE (NEGATIVE)
[2022-02-23 20:19] LABS: URINE AMPHETAMINES NEGATIVE (NEGATIVE)
[2022-02-24 13:09] LABS: SARS-CoV-2 NAA Not Detected (Not Detected)
== END 2022-02-23 18:32 | disposition home or self-care (01) ==
LOC: JER 16:23
DX: M79.10 Myalgia, unspecified site (principal); R51.9 Headache, unspecified; R05.1 Acute cough; R09.81 Nasal congestion
CPT/HCPCS: 71046-TC-FY; 80307; 99284-25; C9803-CS; U0003; U0005